=== PATIENT | female | born 1960 | race Caucasian/White ===

== ENCOUNTER 2016-03-07 19:20 | Emergency (ER) | payer OTHER ==
[2016-03-07 19:26] VITALS: BP 120/65; PULSE 74; TEMP 97.8; BMI 23.6
[2016-03-07] MEDS ORDERED: OXYCODONE/APAP 5/325MG COMBO TABLET PO ONE (20:29)
[2016-03-07] MEDS ORDERED: LIDOCAINE HCL 1%, 10 MG/ML (50 mL VIAL) INF ONE (20:31)
[2016-03-07] MEDS ORDERED: OXYCODONE/APAP 5/325MG COMBO TABLET ONE (20:39)
[2016-03-07] MEDS ORDERED: LIDOCAINE HCL 2% (20ML MULTI-DOSE VIAL) NR ONE (20:40)
[2016-03-07 20:54] LABS: MCH 28.6 pg (25.7-33.7); MCHC 33.3 g/dl (32.0-36.0); MEAN PLT VOLUME 7.8 fl (7.5-11.1); PLATELET COUNT 315 K/MM3 (134-434); WHITE BLOOD COUNT 8.4 K/mm3 (4.0-10.0)
[2016-03-07 21:17] LABS: ALBUMIN 3.5 g/dl (3.4-5.0); ANION GAP 9 (8-16); CALCIUM 8.7 mg/dL (8.5-10.1); CO2 27 mmol/L (21-32); CREATININE 0.5 mg/dL (0.55-1.02); GLUCOSE,RANDOM 103 mg/dL (74-106); SGOT/AST 23 U/L (15-37); SGPT/ALT 18 U/L (12-78)
[2016-03-07 21:22] LABS: ALK PHOS 92 U/L (45-117); BILIRUBIN,TOTAL 0.6 mg/dL (0.2-1.0); TROPONIN I < 0.02 ng/ml (0.00-0.05)
--- NOTE | 2016-03-07 21:51 | PDOC ---
History of Present Illness - General Chief Complaint: Injury Stated Complaint: FALL/HEAD INJURY Time Seen by Provider: 03/07/16 20:17 History Source: Patient, Family, Web Development Consultant Used Exam Limitations: Language Barrier - History of Present Illness Initial Comments: 03/07/16 21:46 55yo Female patient presents to ED c/o fall and head injury. Patient was walking her dog when she tripped over his leash, falling and hitting head on concrete. Patient denies LOC, or neck injury/pain. Patient with 2 cm laceration to right eye brow. Denies vision loss, headache, n/v/d, confusion, disorientation, neck pain, chest pain, back pain, abd pain, or any other complaints at this time. Associated bilateral knee pain and right wrist pain on examination. Denies anticoagulation use. Tetanus > 15yrs old. Occurred: reports: this evening Severity: reports: mild Pain Location: reports: head (head injury.), lower extremity (bilateral knees), upper extremity (right wrist) Method of Injury: Yes: fall Modifying Factors: improves with: rest Loss of Consciousness: no loss of consciousness Past History - Travel Traveled outside of the country in the last 30 days: No Close contact w/someone who was outside of country & ill: No - Past Medical History Allergies/Adverse Reactions: Allergies Allergy/AdvReac Type Severity Reaction Status Date / Time Penicillins Allergy Mild Itching Verified 03/07/16 19:26 Home Medications: Ambulatory Orders Cephalexin [Keflex] 500 mg PO BID #20 capsule 03/07/16 Levothyroxine [Synthroid -] 200 mcg PO DAILY 03/07/16 Losartan Potassium 25 mg PO DAILY 03/07/16 Metformin HCl [Glucophage] 1,000 mg PO BID 03/07/16 Tramadol HCl 50 mg PO Q6H PRN #12 tablet MDD 4 tabs 03/07/16 Cancer: Yes (Stomach 2008) Diabetes: Yes HTN: Yes Hypercholesterolemia: Yes Suicide Attempt (Hx): No Thyroid Disease: Yes - Surgical History Abdominal Surgery: Yes (HERNIA REPAIR) Cholecystectomy: Yes Orthopedic Surgery: Yes (RT KNEE REPLACEMENT) - Immunization History Immunization Up to Date: No - Psycho/Social/Smoking Cessation Hx Anxiety: No Suicidal Ideation: No Smoking Status: Yes Smoking History: Current every day smoker Have you smoked in the past 12 months: Yes Number of Cigarettes Smoked Daily: 7 Information on smoking cessation initiated: No 'Breaking Loose' booklet given: 05/04/15 Hx Alcohol Use: No Drug/Substance Use Hx: No Substance Use Type: None Hx Substance Use Treatment: No Trauma Specific PMHX - Complaint Specific PMHX Arthritis: No Back Injury: No Neck Injury: No Hx Sacro Iliac Joint Dysfunction: No Review of Systems - Review of Systems Able to Perform ROS?: Yes Is the patient limited Ukrainian proficient: No Constitutional: No: Chills, Fever, Weakness HEENTM: No: Eye Pain, Blurred Vision, Double Vision, Ear Pain, Nose Pain, Nose Congestion, Nose Bleeding, Throat Pain, Difficulty Swallowing Respiratory: No: Shortness of Breath, Stridor, Wheezing, Hemoptysis Cardiac (ROS): No: Chest Pain, Edema, Lightheadedness, Palpitations, Chest Tightness ABD/GI: No: Abdominal Distended, Blood Streaked Bowels, Diarrhea, Difficulty Swallowing, Nausea, Rectal Bleeding, Vomiting : No: Dysuria, Discharge, Frequency, Flank Pain, Hematuria, Incontinence, Pain , Urgency Musculoskeletal: Yes: Other (Head injury). No: Back Pain, Neck Pain Integumentary: No: Erythema, Rash Neurological: No: Headache, Numbness, Paresthesia, Seizure, Tingling, Tremors, Weakness, Unsteady Gait, Ataxia, Dizziness All Other Systems: Reviewed and Negative *Physical Exam - Vital Signs Last Vital Signs Temp Pulse Resp BP Pulse Ox 97.8 F 74 18 120/65 99 03/07/16 19:21 03/07/16 19:21 03/07/16 19:21 03/07/16 19:21 03/07/16 19:21 - Physical Exam General Appearance: Yes: Nourished, Appropriately Dressed, Mild Distress. No: Apparent Distress, Moderate Distress, Severe Distress HEENT: positive: EOMI, ABBY, Normal ENT Inspection, Normal Voice, Symmetrical, TMs Normal, Pharynx Normal. negative: Nasal Congestion, Rhinorrhea, TM Bulging , TM Dull, TM Erythema Neck: positive: Trachea midline, Normal Thyroid, Supple. negative: Tender, Rigid, Decreased range of motion, Stridor, Lymphadenopathy (R), Lymphadenopathy (L), Tender lateral, Tender midline Respiratory/Chest: positive: Lungs Clear, Normal Breath Sounds. negative: Respiratory Distress, Accessory Muscle Use, Labored Respiration, Rapid RR, Rhonchi, Stridor, Wheezing Cardiovascular: positive: Regular Rhythm, Regular Rate. negative: Edema, JVD, Murmur Gastrointestinal/Abdominal: positive: Normal Bowel Sounds, Soft. negative: Distended, Guarding, Rebound, Tenderness Musculoskeletal: positive: Normal Inspection. negative: CVA Tenderness Extremity: positive: Normal Capillary Refill, Normal Inspection, Normal Range of Motion, Pelvis Stable, Other (Bilateral knee tenderness on examination with mild erythema. 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 Bacitracin ointment applied topically after procedure. ED Treatment Course - LABORATORY CBC & Chemistry Diagram: 03/07/16 20:42 03/07/16 20:42 - ADDITIONAL ORDERS Additional order review: Laboratory Results 03/07/16 20:42 Sodium 143 Potassium 4.1 Chloride 107 Carbon Dioxide 27 Anion Gap 9 BUN 13 D Creatinine 0.5 L D Creat Clearance w eGFR > 60 Random Glucose 103 Calcium 8.7 Total Bilirubin 0.6 AST 23 D ALT 18 D Alkaline Phosphatase 92 D Creatine Kinase 84 Troponin I < 0.02 Total Protein 7.0 Albumin 3.5 03/07/16 20:42 RBC 4.53 MCV 86.0 MCHC 33.3 RDW 14.0 D MPV 7.8 - RADIOLOGY Radiology Studies Ordered: Category Date Time Status CERVICAL SPINE CT W/O CONTR [CT] Stat CT Scan 03/07/16 20:[address] WITHOUT CONTRAST [CT] Stat CT Scan 03/07/16 20:26 Taken KNEE 2 POS-LEFT [RAD] Stat Radiology 03/07/16 20:26 Taken KNEE 2 POS-RIGHT [RAD] Stat Radiology 03/07/16 20:26 Taken WRIST W/HAND-RIGHT* [RAD] Stat Radiology 03/07/16 20:26 Taken - Medications Given in the ED: ED Medications Discontinued Medications Generic Name Dose Route Start Last Admin Trade Name Freq PRN Reason Stop Dose Admin Lidocaine HCl 10 ml 03/07/16 20:31 03/07/16 20:53 Xylocaine 1% INF 03/07/16 20:32 10 ml ONCE ONE Administration Oxycodone/Acetaminophen 1 combo 03/07/16 20:29 03/07/16 20:41 Percocet 5/325 - PO 03/07/16 20:30 1 combo ONCE ONE Administration *DC/Admit/Observation/Transfer Diagnosis at time of Disposition: Laceration Head injury Qualifiers: Encounter type: initial encounter Qualified Code(s): S09.90XA - Unspecified injury of head, initial encounter Fall Qualifiers: Encounter type: initial encounter Qualified Code(s): W19.XXXA - Unspecified fall, initial encounter - Discharge Dispostion Disposition: HOME Condition at time of disposition: Stable Admit: No - Prescriptions Prescriptions: Cephalexin [Keflex] 500 mg PO BID #20 capsule Tramadol HCl 50 mg PO Q6H PRN #12 tablet MDD 4 tabs PRN Reason: severe pain - Patient Instructions Printed Discharge Instructions: DI for Suture Removal, DI for Closed Head Injury Additional Instructions: FOLLOW UP WITH YOUR PRIMARY CARE PROVIDER OR RETURN TO THIS EMERGENCY DEPARTMENT IN 5 DAYS FOR SUTURE REMOVAL. DO NOT WET OR SCRUB AREA FOR 24 HOURS. MAY WASH WITH SOAP AND WATER AFTER, DRY THOROUGHLY THEN APPLY BACITRACIN OINTMENT NEEDED. YOU SHOULD ALSO HOLD COLD COMPRESS TO AFFECTED AREA EVERY 4 HOURS FOR 10-15 MINS ON AND OFF TWICE A DAY. TRAMADOL FOR PAIN NOT RELIEVED BY MOTRIN OR TYLENOL. KEFLEX TO PREVENT INFECTION. RETURN IF ANY CONCERNS FOR FURTHER EVALUATION. Print Language: INDONESIAN
[2016-03-07] MEDS ORDERED: traMADol HCL 50 MG TABLET PO ONE (22:48)
[2016-03-07] MEDS ORDERED: CEPHALEXIN MONOHYDRATE 500 MG CAPSULE (UD) PO ONE (22:48)
[2016-03-07] MEDS ORDERED: TETANUS AND DIPHTHERIA TOXOID 0.5 ML DISP.SYRIN IM ONE (22:48)
[2016-03-07] MEDS ORDERED: traMADol HCL 50 MG TABLET ONE (22:55)
[2016-03-07] MEDS ORDERED: CEPHALEXIN MONOHYDRATE 250 MG CAPSULE (FP) ONE (22:56)
--- NOTE | 2016-03-08 09:32 | EKG ---
Test Reason : Blood Pressure : / mmHG Vent. Rate : 060 BPM Atrial Rate : 060 BPM P-R Int : 150 ms QRS Dur : 090 ms QT Int : 418 ms P-R-T Axes : 055 052 059 degrees QTc Int : 418 ms NORMAL SINUS RHYTHM Confirmed by ISAIAS SOSA MD ([id number]) on 03/08/2016 9:32:08 AM Referred By: Confirmed By:ISAIAS SOSA MD
== END 2016-03-07 23:19 | disposition home or self-care (01) ==
LOC: JERFT 19:20 → JER 19:20
PROC: 0HQ1XZZ Repair Face Skin, External Approach (ICD-10-PCS; principal; 2016-03-07)
PROC: 3E0234Z Introduction of Serum, Toxoid and Vaccine into Muscle, Percutaneous Approach (ICD-10-PCS; 2016-03-07)
DX: S01.81XA Laceration without foreign body of other part of head, initial encounter (principal); W01.0XXA Fall on same level from slipping, tripping and stumbling without subsequent striking against object, initial encounter; Y93.K1 Activity, walking an animal; Y92.488 Other paved roadways as the place of occurrence of the external cause; I10 Essential (primary) hypertension; E11.9 Type 2 diabetes mellitus without complications; Z79.84 Long term (current) use of oral hypoglycemic drugs; E78.00 Pure hypercholesterolemia, unspecified; E03.9 Hypothyroidism, unspecified; Z85.028 Personal history of other malignant neoplasm of stomach
CPT/HCPCS: 12011-25; 36415; 70450-TC; 72125-TC; 73110-TC-RT; 73130-TC-RT; 73560-TC-LT; 73560-TC-RT; 80053; 82550; 84484; 85027; 90471; 90715; 93005; 93010; 99283-25

== ENCOUNTER 2016-05-30 11:03 | Emergency (ER) | payer OTHER ==
[2016-05-30 11:09] VITALS: BP 119/77; PULSE 97; TEMP 98.3; BMI 22.3
[2016-05-30] MEDS ORDERED: traMADol HCL 50 MG TABLET PO ONE (11:24)
[2016-05-30] MEDS ORDERED: traMADol HCL 50 MG TABLET ONE (11:33)
--- NOTE | 2016-05-30 11:53 | PDOC ---
History of Present Illness - General Chief Complaint: Injury Stated Complaint: FALL/ NOSE, HEADACHE Time Seen by Provider: 05/30/16 11:18 History Source: Patient Exam Limitations: No Limitations - History of Present Illness Initial Comments: 05/30/16 11:48 55-year-old female presents to the ED with complaints of status post mechanical fall. Patient states was walking when she had tripped on her shoelaces causing her to fall forward landing on her left knee, bilateral hands, and then face. Patient denies LOC and denies any headache visual changes neck pain or dizziness presently. Patient states on no anticoagulation therapy and has history of diabetes. Patient states is concerned secondary to nasal swelling, for had tenderness, and swelling to upper lip. Occurred: reports: this morning Severity: reports: mild Pain Location: reports: face, lower extremity (left knee) Method of Injury: Yes: fall Modifying Factors: improves with: None Loss of Consciousness: no loss of consciousness Associated Symptoms (Fall): denies symptoms Past History - Past Medical History Allergies/Adverse Reactions: Allergies Allergy/AdvReac Type Severity Reaction Status Date / Time Penicillins Allergy Mild Itching Verified 05/30/16 11:09 Home Medications: Ambulatory Orders Cephalexin [Keflex] 500 mg PO BID #20 capsule 03/07/16 Levothyroxine [Synthroid -] 200 mcg PO DAILY 03/07/16 Losartan Potassium 25 mg PO DAILY 03/07/16 Metformin HCl [Glucophage] 1,000 mg PO BID 03/07/16 Tramadol HCl 50 mg PO Q6H PRN #12 tablet MDD 4 tabs 03/07/16 Cancer: Yes (Stomach 2008) Diabetes: Yes HTN: Yes Hypercholesterolemia: Yes Suicide Attempt (Hx): No Thyroid Disease: Yes - Surgical History Abdominal Surgery: Yes (HERNIA REPAIR) Cholecystectomy: Yes Orthopedic Surgery: Yes (RT KNEE REPLACEMENT) - Immunization History Immunization Up to Date: No - Psycho/Social/Smoking Cessation Hx Anxiety: No Suicidal Ideation: No Smoking Status: Yes Smoking History: Current every day smoker Have you smoked in the past 12 months: Yes Number of Cigarettes Smoked Daily: 4 Information on smoking cessation initiated: Yes 'Breaking Loose' booklet given: 05/30/16 Hx Alcohol Use: No Drug/Substance Use Hx: No Substance Use Type: None Hx Substance Use Treatment: No Patient Lives Alone: No Lives with/in: spouse/SO Trauma Specific PMHX - Complaint Specific PMHX Arthritis: No Back Injury: No Neck Injury: No Hx Sacro Iliac Joint Dysfunction: No Review of Systems - Review of Systems Able to Perform ROS?: Yes Constitutional: No: Symptoms Reported HEENTM: No: Symptoms Reported Respiratory: No: Symptoms reported Cardiac (ROS): No: Symptoms Reported ABD/GI: No: Symptoms Reported Musculoskeletal: No: Joint Pain Integumentary: Yes: Erythema, Other (swelling to nasal bridge and upper lip) Neurological: No: Symptoms reported *Physical Exam - Vital Signs Last Vital Signs Temp Pulse Resp BP Pulse Ox 98.3 F 97 H 18 119/77 97 05/30/16 11:08 05/30/16 11:08 05/30/16 11:08 05/30/16 11:08 05/30/16 11:08 - Physical Exam General Appearance: Yes: Nourished, Appropriately Dressed. No: Apparent Distress HEENT: positive: EOMI, ABBY (reactive bilateral), TMs Normal, Pharynx Normal (1 cm linear superficial to the inner aspect of upper lip. #8 and 9 teeth are intact. buccal mucosa intact /gingiva intact) Neck: positive: Supple. negative: Tender, Decreased range of motion Respiratory/Chest: positive: Lungs Clear, Normal Breath Sounds. negative: Respiratory Distress, Accessory Muscle Use Cardiovascular: positive: Regular Rhythm, Regular Rate. negative: Murmur Integumentary: positive: Other (Noted mild edema to the nasal bridge, lower mid forehead, and upper lip. Noted dry blood in bilateral nares. No crepitus no deformity no orbital tenderness. Full range of motion of mandible. ) Neurologic: positive: Motor Strength 5/5 (ambulatory. gait steady.) ED Treatment Course - RADIOLOGY Radiology Studies Ordered: Category Date Time Status FACIAL BONES CT W/O CONTRAST [CT] Stat CT Scan 05/30/16 11:24 Ordered - Medications Given in the ED: ED Medications Discontinued Medications Generic Name Dose Route Start Last Admin Trade Name Freq PRN Reason Stop Dose Admin Tramadol HCl 50 mg 05/30/16 11:24 05/30/16 11:41 Ultram - PO 05/30/16 11:25 50 mg ONCE ONE Administration Medical Decision Making - Medical Decision Making 05/30/16 11:54 Patient status post mechanical fall with tenderness to the nasal bridge lower mid forehead and upper lip. Patient ordered for facial CT to rule out fractures. Patient requesting tramadol since she states only takes that when needed for pain since having her knee surgery 2 months ago. 05/30/16 13:28 Patient with no acute fracture seen chronic bilateral nasal fractures again seen when compared to CT from 03/07/2016. Patient be discharged home with supportive care. patient states feeling better. *DC/Admit/Observation/Transfer Diagnosis at time of Disposition: Contusion of face Qualifiers: Encounter type: initial encounter Qualified Code(s): S00.83XA - Contusion of other part of head, initial encounter - Discharge Dispostion Disposition: HOME Condition at time of disposition: Good - Referrals Referrals: Claudio Luis MD [Primary Care Provider] - - Patient Instructions Printed Discharge Instructions: DI for Contusion Additional Instructions: Apply ice to the affected area for the next 3 days as much as you can tolerate and may take Motrin or Tylenol for discomfort.
== END 2016-05-30 13:32 | disposition home or self-care (01) ==
LOC: JERFT 11:03
DX: S00.83XA Contusion of other part of head, initial encounter (principal); S01.511A Laceration without foreign body of lip, initial encounter; W01.0XXA Fall on same level from slipping, tripping and stumbling without subsequent striking against object, initial encounter; Y93.01 Activity, walking, marching and hiking; Y92.480 Sidewalk as the place of occurrence of the external cause; I10 Essential (primary) hypertension; E11.9 Type 2 diabetes mellitus without complications; Z79.84 Long term (current) use of oral hypoglycemic drugs; E78.00 Pure hypercholesterolemia, unspecified; E03.9 Hypothyroidism, unspecified; Z85.028 Personal history of other malignant neoplasm of stomach
CPT/HCPCS: 70486-TC; 99281-25

== ENCOUNTER 2020-07-09 20:09 | Inpatient (IN) | payer OTHER ==
[2020-07-09] MEDS ORDERED: ACETAMINOPHEN 500 MG TABLET (FP) PO ONE (21:06)
[2020-07-09] MEDS ORDERED: ACETAMINOPHEN 325 MG TABLET (FP) ONE (21:43)
[2020-07-09 22:18] LABS: BASO % 0.4 % (0-2.0); HEMATOCRIT 39.8 % (32.4-45.2); HEMOGLOBIN 13.2 GM/dL (10.7-15.3); LYMPH % 3.4 % (8-40); MCH 29.1 pg (25.7-33.7); MCHC 33.1 g/dl (32.0-36.0); MEAN CELL VOLUME 87.8 fl (80-96); MEAN PLT VOLUME 8.9 fl (7.5-11.1); MONO % 3.6 % (3.8-10.2); NEUT % 92.6 % (42.8-82.8); PLATELET COUNT 273 K/MM3 (134-434); RBC 4.54 M/mm3 (3.60-5.2); RDW 15.1 % (11.6-15.6); WHITE BLOOD COUNT 28.3 K/mm3 (4.0-10.0)
[2020-07-09 22:21] LABS: ALBUMIN 3.6 g/dl (3.4-5.0); CALCIUM 9.1 mg/dL (8.5-10.1)
[2020-07-09 22:25] LABS: CREATININE 0.9 mg/dL (0.55-1.3)
[2020-07-09 22:26] LABS: BILIRUBIN,TOTAL 1.1 mg/dL (0.2-1); TOT PROT 7.9 g/dl (6.4-8.2)
[2020-07-09] MEDS ORDERED: SODIUM CHLORIDE 1,000 ML IV STA (22:27)
[2020-07-09] MEDS ORDERED: AZTREONAM 1 GM in DEXTROSE 5%-WATER - 50 ML IVPB ONE (22:29)
[2020-07-09] MEDS ORDERED: VANCOMYCIN 1 GM in D5W (PRE-DOCKED) 1,000 MG/250 ML IVPB ONE (22:29)
[2020-07-09] MEDS ORDERED: CEFEPIME HCL/D5W 2 GM/50 ML BAG IVPB ONE (22:41)
[2020-07-09 22:56] LABS: EPI CELLS 10 /uL (0-25.1); HYALINE CASTS 4 /uL (0-3.1); URINE APPEARANCE CLOUDY; URINE BACTERIA >9,000 /uL (0-1359); URINE BILIRUBIN NEGATIVE (NEGATIVE); URINE COLOR YELLOW; URINE GLUCOSE (UA) NEGATIVE (NEGATIVE); URINE KETONE NEGATIVE (NEGATIVE); URINE LEUK ESTERASE 3+ (NEGATIVE); URINE NITRITE POSITIVE (NEGATIVE); URINE PROTEIN 1+ (NEGATIVE); URINE RBC 88 /uL (0-23.9); URINE UROBILINOGEN 0.2 mg/dL (0.2-1.0); URINE WBC 1109 /uL (0-25.8)
[2020-07-09] MEDS ORDERED: CEFEPIME 2 GM/100 ML BAG IVPB ONE (23:42)
[2020-07-09] MEDS ORDERED: VANCOMYCIN 1 GRAM (PRE-DOCKED) 1,000 MG/250 ML BAG IVPB ONE (23:42)
[2020-07-09 23:49] LABS: PLATELET ESTIMATE NORMAL
[2020-07-10] MEDS ORDERED: DEXTROSE 5%-0.45% SALINE 1,000 ML IV SCH (00:15)
[2020-07-10 03:21] VITALS: BMI 27.8
[2020-07-10] MEDS: INSULIN SLIDING SCALE (NOVOLOG) 1 VIAL SQ SCH ×4 (06:18→21:35)
[2020-07-10] MEDS: metFORMIN HCL 500 MG TABLET (FP) PO SCH ×2 (06:19→17:11)
[2020-07-10] MEDS: LEVOTHYROXINE NA 200 MCG TABLET PO SCH (06:19)
[2020-07-10 08:59] LABS: BLOOD UREA NITROGEN 12.4 mg/dL (7-18)
[2020-07-10 09:01] LABS: BASO % 0.4 % (0-2.0); HEMATOCRIT 35.1 % (32.4-45.2); HEMOGLOBIN 11.8 GM/dL (10.7-15.3); LYMPH % 4.9 % (8-40); MCH 29.3 pg (25.7-33.7); MCHC 33.5 g/dl (32.0-36.0); MEAN CELL VOLUME 87.4 fl (80-96); MONO % 4.7 % (3.8-10.2); PLATELET COUNT 218 K/MM3 (134-434); RBC 4.01 M/mm3 (3.60-5.2); RDW 14.7 % (11.6-15.6); WHITE BLOOD COUNT 25.9 K/mm3 (4.0-10.0)
[2020-07-10 09:02] LABS: CREATININE 0.7 mg/dL (0.55-1.3)
[2020-07-10 09:03] LABS: TOT PROT 6.3 g/dl (6.4-8.2)
[2020-07-10 09:16] LABS: ALBUMIN 2.8 g/dl (3.4-5.0)
[2020-07-10] MEDS ORDERED: CEFEPIME HCL 1 GM VIAL (RESTRICTED TO ID) ONE (09:54)
[2020-07-10] MEDS ORDERED: DEXTROSE 5%-WATER 100 ML IVPB ONE (09:54)
[2020-07-10] MEDS ORDERED: PATIENT'S OWN MEDICATION (NON-FORMULARY) (Metformin Hcl [Glucophage] 1,000 MG Tablet) PO SCH (10:00)
[2020-07-10] MEDS ORDERED: LOSARTAN POTASSIUM 25 MG TABLET PO SCH (10:00)
[2020-07-10] MEDS ORDERED: CEFEPIME 1 GM in DEXTROSE 5%-WATER 1 GM/100 ML BAG IVPB SCH (10:00)
[2020-07-10] MEDS ORDERED: CEFEPIME HCL/D5W 1 GM/50 ML BAG IVPB SCH (10:00)
[2020-07-10] MEDS: ENOXAPARIN NA (PORCINE) 40 MG/0.4 ML DISP.SYRIN SQ SCH (10:26)
[2020-07-10 11:20] LABS: ANISOCYTOSIS 0; MACROCYTOSIS 0; PLATELET ESTIMATE NORMAL
[2020-07-10] MEDS: ACETAMINOPHEN 325 MG TABLET (FP) PO PRN (14:17)
[2020-07-10] MEDS ORDERED: POTASSIUM CHLORIDE TABS 20 MEQ TABLET.ER (FP) PO ONE (16:51)
[2020-07-10] MEDS: CEFEPIME 1 GM in DEXTROSE 5%-WATER 1 GM/100 ML BAG IVPB SCH (18:01)
[2020-07-10] MEDS ORDERED: ACETAMINOPHEN 1000 MG/100 ML VIAL (NON FORMULARY) IVPB ONE (21:40)
[2020-07-10] MEDS: DEXTROSE 5%-0.45% SALINE 1,000 ML IV SCH (23:11)
[2020-07-11] MEDS ORDERED: CEFEPIME HCL 1 GM VIAL (RESTRICTED TO ID) ONE ×3 (01:34→17:07)
[2020-07-11] MEDS ORDERED: DEXTROSE 5%-WATER 100 ML IVPB ONE ×3 (01:34→17:07)
[2020-07-11] MEDS: CEFEPIME 1 GM in DEXTROSE 5%-WATER 1 GM/100 ML BAG IVPB SCH ×3 (02:07→18:11)
[2020-07-11] MEDS: ACETAMINOPHEN 325 MG TABLET (FP) PO PRN ×3 (05:27→20:08)
[2020-07-11] MEDS: INSULIN SLIDING SCALE (NOVOLOG) 1 VIAL SQ SCH ×4 (06:03→21:34)
[2020-07-11] MEDS: LEVOTHYROXINE NA 200 MCG TABLET PO SCH (06:03)
[2020-07-11] MEDS: metFORMIN HCL 500 MG TABLET (FP) PO SCH ×2 (06:03→18:10)
[2020-07-11 08:53] LABS: BASO % 0.2 % (0-2.0); HEMOGLOBIN 11.6 GM/dL (10.7-15.3); LYMPH % 8.5 % (8-40); MCH 29.9 pg (25.7-33.7); MCHC 34.1 g/dl (32.0-36.0); MEAN CELL VOLUME 87.8 fl (80-96); MEAN PLT VOLUME 8.4 fl (7.5-11.1); MONO % 5.3 % (3.8-10.2); PLATELET COUNT 180 K/MM3 (134-434); RBC 3.87 M/mm3 (3.60-5.2); RDW 14.9 % (11.6-15.6); WHITE BLOOD COUNT 10.3 K/mm3 (4.0-10.0)
[2020-07-11 09:14] LABS: CALCIUM 8.3 mg/dL (8.5-10.1)
[2020-07-11] MEDS: DEXTROSE 5%-0.45% SALINE 1,000 ML IV SCH ×3 (09:15→23:00)
[2020-07-11 09:16] LABS: ALBUMIN 2.5 g/dl (3.4-5.0)
[2020-07-11] MEDS: ENOXAPARIN NA (PORCINE) 40 MG/0.4 ML DISP.SYRIN SQ SCH (09:16)
[2020-07-11 09:19] LABS: CREATININE 0.8 mg/dL (0.55-1.3)
[2020-07-12] MEDS ORDERED: CEFEPIME HCL 1 GM VIAL (RESTRICTED TO ID) ONE (02:32)
[2020-07-12] MEDS ORDERED: DEXTROSE 5%-WATER 100 ML IVPB ONE ×3 (02:33→16:57)
[2020-07-12] MEDS: CEFEPIME 1 GM in DEXTROSE 5%-WATER 1 GM/100 ML BAG IVPB SCH (02:51)
[2020-07-12] MEDS: DEXTROSE 5%-0.45% SALINE 1,000 ML IV SCH ×3 (03:00→17:18)
[2020-07-12] MEDS: ACETAMINOPHEN 325 MG TABLET (FP) PO PRN ×2 (04:08→15:20)
[2020-07-12] MEDS ORDERED: LEVOTHYROXINE NA 150 MCG TABLET ONE (05:55)
[2020-07-12] MEDS ORDERED: LEVOTHYROXINE NA 25 MCG TABLET (FP) ONE (05:55)
[2020-07-12] MEDS: metFORMIN HCL 500 MG TABLET (FP) PO SCH ×2 (06:15→17:07)
[2020-07-12] MEDS: LEVOTHYROXINE 150 MCG, LEVOTHYROXINE 25 MCG PO SCH (06:15)
[2020-07-12] MEDS: INSULIN SLIDING SCALE (NOVOLOG) 1 VIAL SQ SCH ×4 (06:17→21:47)
[2020-07-12] MEDS ORDERED: LEVOTHYROXINE NA 150 MCG TABLET PO SCH (07:00)
[2020-07-12] MEDS ORDERED: PT OWN MED DRAWER 7, Y5N ONE (09:49)
[2020-07-12] MEDS ORDERED: MEROPENEM 1 GM VIAL (RESTRICTED TO ID) IVPB ONE ×2 (09:49→16:56)
[2020-07-12] MEDS: MEROPENEM 1 GM in DEXTROSE 5%-WATER 100 ML IVPB SCH ×2 (09:52→17:15)
[2020-07-12] MEDS: ENOXAPARIN NA (PORCINE) 40 MG/0.4 ML DISP.SYRIN SQ SCH (09:56)
[2020-07-12] MEDS ORDERED: DEXTROSE 5% IVPB SCH (10:00)
[2020-07-12] MEDS ORDERED: WATER IVPB SCH (10:00)
[2020-07-12] MEDS ORDERED: MEROPENEM IVPB SCH (10:00)
[2020-07-13] MEDS ORDERED: MEROPENEM 1 GM VIAL (RESTRICTED TO ID) IVPB ONE ×3 (01:26→16:48)
[2020-07-13] MEDS ORDERED: DEXTROSE 5%-WATER 100 ML IVPB ONE ×3 (01:26→16:48)
[2020-07-13] MEDS: MEROPENEM 1 GM in DEXTROSE 5%-WATER 100 ML IVPB SCH ×3 (01:45→17:14)
[2020-07-13] MEDS ORDERED: LEVOTHYROXINE NA 150 MCG TABLET ONE (05:17)
[2020-07-13] MEDS ORDERED: LEVOTHYROXINE NA 25 MCG TABLET (FP) ONE (05:17)
[2020-07-13] MEDS: metFORMIN HCL 500 MG TABLET (FP) PO SCH ×2 (06:00→17:14)
[2020-07-13] MEDS: INSULIN SLIDING SCALE (NOVOLOG) 1 VIAL SQ SCH ×4 (06:01→21:08)
[2020-07-13] MEDS: LEVOTHYROXINE 150 MCG, LEVOTHYROXINE 25 MCG PO SCH (06:01)
[2020-07-13] MEDS ORDERED: INSULIN (NOVOLOG) ASPART 100 UNITS/ML 10ML VIAL ONE (10:15)
[2020-07-13] MEDS: DEXTROSE 5%-0.45% SALINE 1,000 ML IV SCH ×2 (10:22→16:45)
[2020-07-13] MEDS: ENOXAPARIN NA (PORCINE) 40 MG/0.4 ML DISP.SYRIN SQ SCH (10:23)
[2020-07-14] MEDS ORDERED: MEROPENEM 1 GM VIAL (RESTRICTED TO ID) IVPB ONE ×3 (00:48→16:27)
[2020-07-14] MEDS ORDERED: DEXTROSE 5%-WATER 100 ML IVPB ONE ×3 (00:48→16:28)
[2020-07-14] MEDS: MEROPENEM 1 GM in DEXTROSE 5%-WATER 100 ML IVPB SCH ×3 (01:08→17:37)
[2020-07-14] MEDS: DEXTROSE 5%-0.45% SALINE 1,000 ML IV SCH ×2 (01:30→16:31)
[2020-07-14] MEDS ORDERED: LEVOTHYROXINE NA 25 MCG TABLET (FP) ONE (06:11)
[2020-07-14] MEDS ORDERED: LEVOTHYROXINE NA 150 MCG TABLET ONE (06:11)
[2020-07-14] MEDS: LEVOTHYROXINE 150 MCG, LEVOTHYROXINE 25 MCG PO SCH (06:20)
[2020-07-14] MEDS: metFORMIN HCL 500 MG TABLET (FP) PO SCH ×2 (06:20→16:30)
[2020-07-14] MEDS: INSULIN SLIDING SCALE (NOVOLOG) 1 VIAL SQ SCH ×4 (06:21→22:27)
[2020-07-14 08:23] LABS: BASO % 0.8 % (0-2.0); EOS % 2.7 % (0-4.5); HEMATOCRIT 33.4 % (32.4-45.2); HEMOGLOBIN 11.3 GM/dL (10.7-15.3); MCH 29.3 pg (25.7-33.7); MCHC 33.7 g/dl (32.0-36.0); MEAN CELL VOLUME 86.9 fl (80-96); MONO % 15.5 % (3.8-10.2); PLATELET COUNT 237 K/MM3 (134-434); RBC 3.84 M/mm3 (3.60-5.2); RDW 15.1 % (11.6-15.6); WHITE BLOOD COUNT 4.9 K/mm3 (4.0-10.0)
[2020-07-14 09:06] LABS: CALCIUM 8.1 mg/dL (8.5-10.1)
[2020-07-14 09:07] LABS: ALBUMIN 2.4 g/dl (3.4-5.0); BLOOD UREA NITROGEN 8.7 mg/dL (7-18)
[2020-07-14 09:10] LABS: CREATININE 0.4 mg/dL (0.55-1.3)
[2020-07-14 09:12] LABS: BILIRUBIN,TOTAL 0.4 mg/dL (0.2-1); TOT PROT 6.1 g/dl (6.4-8.2)
[2020-07-14] MEDS: ENOXAPARIN NA (PORCINE) 40 MG/0.4 ML DISP.SYRIN SQ SCH (10:21)
[2020-07-14 10:56] LABS: ANISOCYTOSIS 1+; MACROCYTOSIS 0; PLATELET ESTIMATE NORMAL
[2020-07-14] MEDS: HYDROCORTISONE 2.5% TOPICAL CREAM 30 GM TUBE TP SCH (22:28)
[2020-07-15] MEDS ORDERED: MEROPENEM 1 GM VIAL (RESTRICTED TO ID) IVPB ONE ×3 (01:12→17:03)
[2020-07-15] MEDS ORDERED: DEXTROSE 5%-WATER 100 ML IVPB ONE ×3 (01:13→17:03)
[2020-07-15] MEDS: MEROPENEM 1 GM in DEXTROSE 5%-WATER 100 ML IVPB SCH ×3 (01:51→17:25)
[2020-07-15] MEDS ORDERED: LEVOTHYROXINE NA 25 MCG TABLET (FP) ONE (05:30)
[2020-07-15] MEDS ORDERED: LEVOTHYROXINE NA 150 MCG TABLET ONE (05:30)
[2020-07-15] MEDS: INSULIN SLIDING SCALE (NOVOLOG) 1 VIAL SQ SCH ×4 (06:22→21:07)
[2020-07-15] MEDS: metFORMIN HCL 500 MG TABLET (FP) PO SCH ×2 (06:23→17:26)
[2020-07-15] MEDS: DEXTROSE 5%-0.45% SALINE 1,000 ML IV SCH ×2 (06:23→17:26)
[2020-07-15] MEDS: LEVOTHYROXINE 150 MCG, LEVOTHYROXINE 25 MCG PO SCH (06:23)
[2020-07-15] MEDS: ENOXAPARIN NA (PORCINE) 40 MG/0.4 ML DISP.SYRIN SQ SCH (13:31)
[2020-07-15] MEDS: HYDROCORTISONE 2.5% TOPICAL CREAM 30 GM TUBE TP SCH (17:26)
[2020-07-16] MEDS ORDERED: MEROPENEM 1 GM VIAL (RESTRICTED TO ID) IVPB ONE ×3 (00:46→17:36)
[2020-07-16] MEDS ORDERED: DEXTROSE 5%-WATER 100 ML IVPB ONE ×3 (00:47→17:36)
[2020-07-16] MEDS: MEROPENEM 1 GM in DEXTROSE 5%-WATER 100 ML IVPB SCH ×3 (01:25→17:38)
[2020-07-16] MEDS ORDERED: LEVOTHYROXINE NA 150 MCG TABLET ONE (05:33)
[2020-07-16] MEDS ORDERED: LEVOTHYROXINE NA 25 MCG TABLET (FP) ONE (05:33)
[2020-07-16] MEDS: LEVOTHYROXINE 150 MCG, LEVOTHYROXINE 25 MCG PO SCH (06:07)
[2020-07-16] MEDS: metFORMIN HCL 500 MG TABLET (FP) PO SCH ×2 (06:07→17:38)
[2020-07-16] MEDS: INSULIN SLIDING SCALE (NOVOLOG) 1 VIAL SQ SCH ×3 (06:08→17:19)
[2020-07-16 08:46] LABS: BASO % 0.9 % (0-2.0); EOS % 2.2 % (0-4.5); HEMATOCRIT 35.8 % (32.4-45.2); MCH 29.4 pg (25.7-33.7); MCHC 33.6 g/dl (32.0-36.0); MEAN CELL VOLUME 87.5 fl (80-96); MEAN PLT VOLUME 8.5 fl (7.5-11.1); MONO % 9.6 % (3.8-10.2); NEUT % 57.3 % (42.8-82.8); PLATELET COUNT 366 K/MM3 (134-434); RDW 15.1 % (11.6-15.6); WHITE BLOOD COUNT 7.1 K/mm3 (4.0-10.0)
[2020-07-16] MEDS: ENOXAPARIN NA (PORCINE) 40 MG/0.4 ML DISP.SYRIN SQ SCH (09:04)
[2020-07-16] MEDS: HYDROCORTISONE 2.5% TOPICAL CREAM 30 GM TUBE TP SCH (09:04)
[2020-07-16 09:12] LABS: ALBUMIN 2.7 g/dl (3.4-5.0); BLOOD UREA NITROGEN 8.3 mg/dL (7-18)
[2020-07-16 09:16] LABS: CREATININE 0.4 mg/dL (0.55-1.3)
[2020-07-16 09:17] LABS: BILIRUBIN,TOTAL 0.6 mg/dL (0.2-1); TOT PROT 6.9 g/dl (6.4-8.2)
[2020-07-16 18:26] VITALS: BP 140/69; PULSE 50; TEMP 97.6
== END 2020-07-16 18:44 | disposition home health service (06) | DRG 466 ==
LOC: JER 20:09 → JERBED 23:17 → J5S 07-10 02:29
PROVIDERS: ADMIT Internal Medicine; ATTEND Internal Medicine
PROC: 02HV33Z Insertion of Infusion Device into Superior Vena Cava, Percutaneous Approach (ICD-10-PCS; principal; 2020-07-16)
PROC: B548ZZA Ultrasonography of Superior Vena Cava, Guidance (ICD-10-PCS; 2020-07-16)
DX: T83.511A Infection and inflammatory reaction due to indwelling urethral catheter, initial encounter (principal); A41.50 Gram-negative sepsis, unspecified; N39.0 Urinary tract infection, site not specified; Y84.6 Urinary catheterization as the cause of abnormal reaction of the patient, or of later complication, without mention of misadventure at the time of the procedure; E03.9 Hypothyroidism, unspecified; I10 Essential (primary) hypertension; E11.9 Type 2 diabetes mellitus without complications; Z88.0 Allergy status to penicillin; Z79.84 Long term (current) use of oral hypoglycemic drugs; Z98.84 Bariatric surgery status; F32.9 Major depressive disorder, single episode, unspecified; F41.9 Anxiety disorder, unspecified
CPT/HCPCS: 36415; 36569; 71046-TC-FY; 74177-TC; 76775-TC; 76856-TC; 77001-TC-FY; 80053; 81003; 82962; 83605; 84443; 85025; 87040; 87086; 87186; 93005; 93010; 99285-25; C1751; C9803; J0131; U0003; U0005

== ENCOUNTER 2020-07-17 10:14 | Day surgery (SDC) | payer OTHER ==
[2020-07-17] MEDS ORDERED: ERTAPENEM SODIUM 1 GM in SODIUM CHLORIDE 50 ML IVPB ONE (10:45)
[2020-07-17] MEDS ORDERED: ERTAPENEM SODIUM 1 GM VIAL ONE (10:47)
[2020-07-17] MEDS ORDERED: SODIUM CHLORIDE 50 ML IVPB ONE (10:48)
[2020-07-17 11:30] VITALS: BP 125/69; PULSE 67; TEMP 98
== END 2020-07-17 14:00 | disposition home or self-care (01) ==
LOC: JINFUSION 10:14 → J7W 10:32 → JINFUSION 14:00
PROVIDERS: ATTEND Internal Medicine Infectious Disease
PROC: 3E033GC Introduction of Other Therapeutic Substance into Peripheral Vein, Percutaneous Approach (ICD-10-PCS; principal; 2020-07-17)
DX: N39.0 Urinary tract infection, site not specified (principal); A41.9 Sepsis, unspecified organism; E11.9 Type 2 diabetes mellitus without complications
CPT/HCPCS: 96365

== ENCOUNTER 2020-07-18 10:58 | Day surgery (SDC) | payer OTHER ==
[2020-07-18] MEDS ORDERED: ERTAPENEM SODIUM 1 GM in SODIUM CHLORIDE 50 ML IVPB SCH (11:30)
[2020-07-18] MEDS ORDERED: ERTAPENEM SODIUM 1 GM VIAL ONE (12:04)
[2020-07-18] MEDS ORDERED: SODIUM CHLORIDE 50 ML IVPB ONE (12:04)
[2020-07-18 12:10] VITALS: BP 119/67; PULSE 61; TEMP 99
== END 2020-07-18 12:45 | disposition home or self-care (01) ==
LOC: JINFUSION 10:58 → J7W 10:59 → JINFUSION 12:45
PROVIDERS: ATTEND Internal Medicine Infectious Disease
DX: N39.0 Urinary tract infection, site not specified (principal); A41.9 Sepsis, unspecified organism; E11.9 Type 2 diabetes mellitus without complications
CPT/HCPCS: 96365

== ENCOUNTER 2020-07-19 10:59 | Day surgery (SDC) | payer OTHER ==
[2020-07-19] MEDS ORDERED: ERTAPENEM SODIUM 1 GM VIAL ONE (11:09)
[2020-07-19] MEDS ORDERED: SODIUM CHLORIDE 50 ML IVPB ONE (11:09)
[2020-07-19] MEDS ORDERED: ERTAPENEM SODIUM 1 GM in SODIUM CHLORIDE 50 ML IVPB ONE (11:15)
[2020-07-19 12:22] VITALS: BP 121/71; PULSE 72; TEMP 98.2
== END 2020-07-19 13:45 | disposition home or self-care (01) ==
LOC: J7W 10:59 → JINFUSION 10:59
PROVIDERS: ATTEND Internal Medicine Infectious Disease
DX: N39.0 Urinary tract infection, site not specified (principal); A41.9 Sepsis, unspecified organism; E11.9 Type 2 diabetes mellitus without complications
CPT/HCPCS: 96365

== ENCOUNTER 2020-07-20 11:07 | Day surgery (SDC) | payer OTHER ==
[2020-07-20] MEDS ORDERED: ERTAPENEM SODIUM 1 GM in SODIUM CHLORIDE 50 ML IVPB ONE (11:30)
[2020-07-20 12:26] VITALS: BP 125/68; PULSE 70; TEMP 98.3
== END 2020-07-20 12:26 | disposition home or self-care (01) ==
LOC: JINFUSION 11:07 → J7W 11:09 → JINFUSION 12:26
PROVIDERS: ATTEND Internal Medicine Infectious Disease
DX: N39.0 Urinary tract infection, site not specified (principal); A41.9 Sepsis, unspecified organism; E11.9 Type 2 diabetes mellitus without complications
CPT/HCPCS: 96365

== ENCOUNTER 2020-07-21 11:25 | Day surgery (SDC) | payer OTHER ==
[2020-07-21] MEDS ORDERED: ERTAPENEM SODIUM 1 GM in SODIUM CHLORIDE 50 ML IVPB ONE (11:45)
[2020-07-21 12:44] VITALS: BP 129/73; PULSE 77; TEMP 98.3
== END 2020-07-21 12:44 | disposition home or self-care (01) ==
LOC: JINFUSION 11:25 → J7W 11:25 → JINFUSION 12:44
PROVIDERS: ATTEND Internal Medicine Infectious Disease
DX: N39.0 Urinary tract infection, site not specified (principal); A41.9 Sepsis, unspecified organism; E11.9 Type 2 diabetes mellitus without complications
CPT/HCPCS: 96365

== ENCOUNTER 2020-07-22 11:37 | Day surgery (SDC) | payer OTHER ==
[~2020-07-22 11:37] MED LIST: ERTAPENEM SODIUM 1 GM in DEXTROSE 5%-WATER - 50 ML IVPB ONE; ERTAPENEM SODIUM 1 GM in SODIUM CHLORIDE 50 ML IVPB ONE
[2020-07-22] MEDS ORDERED: SODIUM CHLORIDE 50 ML IVPB ONE (12:06)
[2020-07-22] MEDS ORDERED: ERTAPENEM SODIUM 1 GM VIAL ONE (12:06)
[2020-07-22 14:17] VITALS: BP 105/62; PULSE 58; TEMP 98.9
== END 2020-07-22 14:33 | disposition home or self-care (01) ==
LOC: JINFUSION 11:37 → J7W 11:37 → JINFUSION 14:33
PROVIDERS: ATTEND Internal Medicine Infectious Disease
DX: N39.0 Urinary tract infection, site not specified (principal); A41.9 Sepsis, unspecified organism; E11.9 Type 2 diabetes mellitus without complications
CPT/HCPCS: 96365

== ENCOUNTER 2022-06-18 06:09 | Day surgery (SDC) | payer OTHER ==
[2022-06-12 10:47] VITALS: BMI 25.0
[2022-06-18] MEDS ORDERED: PROPOFOL 20 ML ONE ×3 (07:03→09:15)
[2022-06-18] MEDS ORDERED: MIDAZOLAM HCL 2 MG/2 ML SINGLE DOSE VIAL ONE (07:03)
[2022-06-18] MEDS ORDERED: BUPIVACAINE HCL/PF 0.5% (5 MG/ML) 30 ML VIAL IJ ONE (07:42)
[2022-06-18] MEDS ORDERED: DEXAMETHASONE SOD PHOSPHATE/PF 10 MG/ML SDV ONE (07:42)
[2022-06-18] MEDS ORDERED: DEXAMETHASONE SOD PHOSPHATE 4 MG/1 ML VIAL ONE (07:42)
[2022-06-18] MEDS ORDERED: ACETAMINOPHEN INJECTION 100 ML IVPB ONE (07:42)
[2022-06-18] MEDS ORDERED: KETAMINE HCL 200 MG/20 ML VIAL ONE (08:02)
[2022-06-18] MEDS ORDERED: TRANEXAMIC ACID 1000 MG/10 ML VIAL ONE (08:17)
[2022-06-18] MEDS ORDERED: ONDANSETRON 4 MG/2 ML VIAL ONE (08:21)
[2022-06-18] MEDS ORDERED: KETOROLAC TROMETHAMINE 30 MG/1 ML VIAL ONE (09:14)
[2022-06-18] MEDS ORDERED: oxyCODONE HCL 5 MG TABLET PO PRN ×2 (10:32)
[2022-06-18] MEDS ORDERED: ONDANSETRON 4 MG/2 ML VIAL IVPUSH PRN (10:32)
[2022-06-18] MEDS ORDERED: ACETAMINOPHEN 325 MG TABLET (FP) PO PRN (10:32)
[2022-06-18] MEDS ORDERED: LACTATED RINGERS SOLUTION 1,000 ML IV SCH (10:45)
[2022-06-18 11:35] VITALS: RESP 16; TEMP 97.8
[2022-06-18 11:51] VITALS: BP 146/81; PULSE 68
== END 2022-06-18 13:05 | disposition home or self-care (01) ==
LOC: FASU 06:09
PROVIDERS: ATTEND Orthopaedic Surgery Sports Medicine
PROC: 0RNK4ZZ Release Left Shoulder Joint, Percutaneous Endoscopic Approach (ICD-10-PCS; principal; 2022-06-18 08:29)
DX: M75.112 Incomplete rotator cuff tear or rupture of left shoulder, not specified as traumatic (principal); M75.42 Impingement syndrome of left shoulder
CPT/HCPCS: 82962; 94760; C1713

== ENCOUNTER 2023-01-11 20:35 | Emergency (ER) | payer OTHER ==
[2023-01-11 20:49] VITALS: BP 168/74; PULSE 62; RESP 18; TEMP 98.2; BMI 25.9
[2023-01-11] MEDS ORDERED: DIPHTH,PERTUSS(ACELL),TET 0.5 ML DISP.SYRIN IM ONE ×2 (21:21→21:33)
[2023-01-11] MEDS ORDERED: ACETAMINOPHEN 325 MG TABLET (FP) PO ONE (21:22)
[2023-01-11] MEDS ORDERED: ACETAMINOPHEN 325 MG TABLET (FP) ONE (21:32)
[2023-01-11] MEDS ORDERED: BACITRACIN ZINC 15 GM TUBE TOPICAL OINTMENT TP ONE (22:57)
[2023-01-11] MEDS ORDERED: BACITRACIN ZINC 15 GM TUBE TOPICAL OINTMENT ONE (22:58)
== END 2023-01-12 00:31 | disposition home or self-care (01) ==
LOC: JER 20:35
PROC: 3E0234Z Introduction of Serum, Toxoid and Vaccine into Muscle, Percutaneous Approach (ICD-10-PCS; principal; 2023-01-11)
DX: S00.83XA Contusion of other part of head, initial encounter (principal); S60.511A Abrasion of right hand, initial encounter; S80.01XA Contusion of right knee, initial encounter; M25.561 Pain in right knee; M25.562 Pain in left knee; M79.641 Pain in right hand; M54.2 Cervicalgia; W18.39XA Other fall on same level, initial encounter; Y93.01 Activity, walking, marching and hiking
CPT/HCPCS: 70450-TC; 70486-TC; 72125-TC; 73562-TC-LT-FY; 90471; 90715; 99284-25

== ENCOUNTER 2023-08-23 20:02 | Emergency (ER) | payer OTHER ==
[2023-08-23 20:09] VITALS: BP 160/78; PULSE 68; RESP 20; TEMP 97.9; BMI 24.2
[2023-08-23] MEDS ORDERED: ONDANSETRON 4 MG/2 ML VIAL ONE (21:48)
[2023-08-23] MEDS: ONDANSETRON 4 MG/2 ML VIAL IVPB ONE ×2 (21:55)
[2023-08-23] MEDS: SODIUM CHLORIDE 0.9% 500 ML INFUS.BAG IV ONE (21:55)
[2023-08-23 22:12] LABS: BASO % 0.6 % (0-2.0); EOS % 2.1 % (0-4.5); HEMATOCRIT 41.8 % (32.4-45.2); HEMOGLOBIN 13.9 GM/dL (10.7-15.3); LYMPH % 40.8 % (8-40); MCH 28.6 pg (25.7-33.7); MCHC 33.2 g/dl (32.0-36.0); MEAN PLT VOLUME 8.5 fl (7.5-11.1); MONO % 7.5 % (3.8-10.2); PLATELET COUNT 306 10^3/uL (134-434); RBC 4.87 M/mm3 (3.60-5.2); RDW 14.3 % (11.6-15.6); WHITE BLOOD COUNT 5.3 K/mm3 (4.0-10.0)
[2023-08-23 22:20] LABS: POTASSIUM 3.9 mmol/L (3.5-5.1)
[2023-08-23 22:22] LABS: CALCIUM 9.2 mg/dL (8.5-10.1)
[2023-08-23 22:23] LABS: BLOOD UREA NITROGEN 13.5 mg/dL (7-18)
[2023-08-23 22:26] LABS: CREATININE 0.7 mg/dL (0.55-1.3)
[2023-08-23 22:27] LABS: BILIRUBIN,TOTAL 1.1 mg/dL (0.2-1)
[2023-08-23 22:28] LABS: TOT PROT 8.5 g/dl (6.4-8.2)
[2023-08-23 23:16] LABS: MAGNESIUM 2.2 mg/dL (1.8-2.4)
[2023-08-23 23:19] LABS: PHOSPHOROUS 3.5 mg/dL (2.5-4.9)
== END 2023-08-24 00:21 | disposition home or self-care (01) ==
LOC: JER 20:02
PROC: 3E033GC Introduction of Other Therapeutic Substance into Peripheral Vein, Percutaneous Approach (ICD-10-PCS; principal; 2023-08-23)
DX: R11.2 Nausea with vomiting, unspecified (principal); R63.4 Abnormal weight loss; R10.13 Epigastric pain; Z20.822 Contact with and (suspected) exposure to COVID-19
CPT/HCPCS: 0241U-QW; 36415; 80053; 83690; 83735; 84100; 85025; 96374; 99284-25

== ENCOUNTER 2024-07-20 23:44 | Inpatient (IN) | payer OTHER ==
[2024-07-21] MEDS: morphine CARPU-JECT 2 MG/1 ML DISP.SYRIN IVPUSH ONE ×2 (01:15→02:07)
[2024-07-21] MEDS ORDERED: MORPHINE SULFATE 2 MG/ML SYRINGE ONE ×2 (01:35→02:04)
[2024-07-21 01:52] LABS: EPI CELLS 21 /uL (0-25.1); HYALINE CASTS 1 /uL (0-3.1); URINE APPEARANCE CLEAR; URINE BACTERIA 12 /uL (0-1359); URINE BILIRUBIN NEGATIVE (NEGATIVE); URINE COLOR DK YELLOW; URINE GLUCOSE (UA) NEGATIVE (NEGATIVE); URINE KETONE TRACE (NEGATIVE); URINE LEUK ESTERASE 1+ (NEGATIVE); URINE NITRITE NEGATIVE (NEGATIVE); URINE PROTEIN NEGATIVE (NEGATIVE); URINE RBC 25 /uL (0-23.9); URINE WBC 41 /uL (0-25.8)
[2024-07-21 02:06] LABS: ABSOLUTE IMMATURE GRANULOCYTES 0.01 x10^3/uL (0.0-0.031); BASOPHILS # 0.02 x10^3/uL (0.01-0.08); EOSINOPHIL % 0.1 % (0.7-5.8); EOSINOPHILS # 0.01 x10^3/uL (0.04-0.36); HEMATOCRIT 34.8 % (34.1-44.9); HEMOGLOBIN 11.4 g/dL (11.2-15.7); MCHC 32.8 g/dl (32.2-35.5); MEAN CELL VOLUME 92.3 fl (79.4-94.8); MEAN PLT VOLUME 9.5 fl (9.4-12.3); MONOCYTE # 0.35 x10^3/uL (0.24-0.86); MONOCYTE % 5.1 % (4.7-12.5); PLATELET COUNT 214 x10^3/uL (182-369); RDW 19.9 % (12.4-16.4)
[2024-07-21 02:26] LABS: INR 0.99 (0.83-1.09); PROTHROMBIN TIME (PATIENT) 10.8 SEC (9.7-13.0)
[2024-07-21 02:29] LABS: ACTIVATED PTT 49.4 SECONDS (25.2-36.5)
[2024-07-21 02:33] LABS: POTASSIUM 3.8 mmol/L (3.5-5.1)
[2024-07-21 02:35] LABS: CALCIUM 8.8 mg/dL (8.5-10.1)
[2024-07-21 02:37] LABS: ALBUMIN 2.7 g/dl (3.4-5.0); BLOOD UREA NITROGEN 61.5 mg/dL (7-18); MAGNESIUM 2.5 mg/dL (1.8-2.4)
[2024-07-21 02:39] LABS: CREATININE 2.8 mg/dL (0.55-1.3)
[2024-07-21 02:40] LABS: BILIRUBIN,TOTAL 1.8 mg/dL (0.2-1)
[2024-07-21 02:42] LABS: TOT PROT 6.1 g/dl (6.4-8.2)
[2024-07-21 02:44] LABS: N-TERMINAL BNP 278.6 pg/ml (5-125)
[2024-07-21] MEDS: morphine CARPU-JECT 4 MG/1 ML DISP.SYRIN IVPUSH ONE (03:54)
[2024-07-21] MEDS ORDERED: morphine SULFATE 4 MG/ML VIAL ONE (04:00)
[2024-07-21] MEDS ORDERED: CEFEPIME HCL/D5W 2 GM/50 ML BAG IVPB ONE (05:01)
[2024-07-21] MEDS ORDERED: MORPHINE SULFATE 2 MG/ML SYRINGE IVPUSH PRN (05:42)
[2024-07-21] MEDS ORDERED: DOCUSATE SODIUM 100 MG CAPSULE (FP) PO PRN (05:42)
[2024-07-21] MEDS: CEFEPIME HCL 2 GM VIAL (RESTRICTED TO ID) IVPB ONE (05:42)
[2024-07-21] MEDS ORDERED: VANCOMYCIN 1 GM PREMIX (F) 1 GM/200 ML BAG ONE (05:51)
[2024-07-21] MEDS: VANCOMYCIN 1,000 MG in DEXTROSE 5%-WATER - 250 ML IVPB ONE (06:18)
[2024-07-21] MEDS: INSULIN ASPART SLIDING SCALE (NOVOLOG) 1 VIAL SQ SCH (08:17)
[2024-07-21] MEDS ORDERED: FENTANYL PATCH WASTE TD PRN (09:24)
[2024-07-21] MEDS: fentaNYL 12mcg/hr PATCH.TD72 TD SCH (09:49)
[2024-07-21] MEDS ORDERED: ACETAMINOPHEN 325 MG TABLET (FP) PO PRN (10:12)
[2024-07-21] MEDS: LIDOCAINE 5% TOPICAL PATCH TP SCH (10:37)
[2024-07-21] MEDS: ONDANSETRON 4 MG/2 ML VIAL IVPUSH PRN (13:40)
[2024-07-21 14:58] LABS: BILIRUBIN,DIRECT 1.2 mg/dL (0.0-0.2)
[2024-07-21] MEDS: morphine SULFATE 4 MG/ML VIAL IVPUSH PRN (15:28)
[2024-07-21] MEDS: LIDOCAINE PATCH REMOVAL MC SCH (21:47)
[2024-07-22] MEDS ORDERED: CEFEPIME HCL 2 GM VIAL (RESTRICTED TO ID) IVPB SCH (05:00)
[2024-07-22] MEDS ORDERED: CEFEPIME HCL/D5W 2 GM/50 ML BAG IVPB ONE (06:00)
[2024-07-22] MEDS: VANCOMYCIN 1 GM PREMIX (F) 1 GM/200 ML BAG IVPB ONE (06:03)
[2024-07-22] MEDS: LEVOTHYROXINE NA 150 MCG TABLET PO SCH (06:06)
[2024-07-22] MEDS ORDERED: VANCOMYCIN 1,000 MG in DEXTROSE 5%-WATER - 250 ML IVPB SCH (06:30)
[2024-07-22 09:10] LABS: ABSOLUTE IMMATURE GRANULOCYTES 0.02 x10^3/uL (0.0-0.031); BASOPHILS # 0.03 x10^3/uL (0.01-0.08); EOSINOPHIL % 1.9 % (0.7-5.8); EOSINOPHILS # 0.08 x10^3/uL (0.04-0.36); HEMATOCRIT 35.2 % (34.1-44.9); HEMOGLOBIN 11.5 g/dL (11.2-15.7); MCHC 32.7 g/dl (32.2-35.5); MEAN CELL VOLUME 93.1 fl (79.4-94.8); MEAN PLT VOLUME 10.4 fl (9.4-12.3); MONOCYTE # 0.21 x10^3/uL (0.24-0.86); MONOCYTE % 4.9 % (4.7-12.5); PLATELET COUNT 164 x10^3/uL (182-369); RDW 20.2 % (12.4-16.4)
[2024-07-22 09:29] LABS: POTASSIUM 3.9 mmol/L (3.5-5.1)
[2024-07-22 09:34] LABS: ALBUMIN 2.4 g/dl (3.4-5.0); BLOOD UREA NITROGEN 61.7 mg/dL (7-18)
[2024-07-22 09:35] LABS: CALCIUM 8.8 mg/dL (8.5-10.1)
[2024-07-22 09:37] LABS: CREATININE 3.1 mg/dL (0.55-1.3)
[2024-07-22 09:38] LABS: BILIRUBIN,TOTAL 3.7 mg/dL (0.2-1); TOT PROT 5.8 g/dl (6.4-8.2)
[2024-07-22] MEDS: HEPARIN NA (PORCINE) 5,000 UNITS/ML 1ML VIAL SQ SCH (21:31)
[2024-07-23] MEDS: PORTA CATH FLUSH 10 ML IVPUSH PRN (03:00)
[2024-07-23 08:45] LABS: ABSOLUTE IMMATURE GRANULOCYTES 0.02 x10^3/uL (0.0-0.031); BASOPHILS # 0.03 x10^3/uL (0.01-0.08); EOSINOPHIL % 1.2 % (0.7-5.8); EOSINOPHILS # 0.05 x10^3/uL (0.04-0.36); HEMATOCRIT 37.1 % (34.1-44.9); HEMOGLOBIN 11.8 g/dL (11.2-15.7); MCHC 31.8 g/dl (32.2-35.5); MEAN CELL VOLUME 93.5 fl (79.4-94.8); MEAN PLT VOLUME 9.8 fl (9.4-12.3); MONOCYTE # 0.35 x10^3/uL (0.24-0.86); MONOCYTE % 8.4 % (4.7-12.5); PLATELET COUNT 150 x10^3/uL (182-369); RDW 20.1 % (12.4-16.4)
[2024-07-23 09:09] LABS: ALBUMIN 2.4 g/dl (3.4-5.0); BLOOD UREA NITROGEN 64.4 mg/dL (7-18); CALCIUM 8.8 mg/dL (8.5-10.1)
[2024-07-23 09:12] LABS: CREATININE 3.3 mg/dL (0.55-1.3)
[2024-07-23 09:14] LABS: TOT PROT 5.9 g/dl (6.4-8.2)
[2024-07-23] MEDS: METOCLOPRAMIDE HCL 10 MG TABLET (FP) PO SCH (10:44)
[2024-07-23] MEDS: ACETAMINOPHEN 325 MG TABLET (FP) PO PRN (21:14)
[2024-07-24 08:53] LABS: HEMATOCRIT 34.1 % (34.1-44.9); HEMOGLOBIN 11.3 g/dL (11.2-15.7); MCHC 33.1 g/dl (32.2-35.5); MEAN CELL VOLUME 92.4 fl (79.4-94.8); MEAN PLT VOLUME 10.2 fl (9.4-12.3); PLATELET COUNT 141 x10^3/uL (182-369); RDW 20.5 % (12.4-16.4)
[2024-07-24 09:16] LABS: POTASSIUM 4.3 mmol/L (3.5-5.1)
[2024-07-24 09:23] LABS: ALBUMIN 2.2 g/dl (3.4-5.0); CALCIUM 8.9 mg/dL (8.5-10.1)
[2024-07-24 09:24] LABS: BLOOD UREA NITROGEN 67.5 mg/dL (7-18)
[2024-07-24 09:27] LABS: CREATININE 3.6 mg/dL (0.55-1.3)
[2024-07-24 09:28] LABS: BILIRUBIN,TOTAL 6.1 mg/dL (0.2-1); TOT PROT 5.8 g/dl (6.4-8.2)
[2024-07-24] MEDS ORDERED: SENNOSIDES 8.6MG TABLET (FP) PO PRN (15:24)
[2024-07-24] MEDS: FUROSEMIDE 40 MG/4 ML INJECTABLE VIAL IVPUSH ONE (15:49)
[2024-07-24 22:25] VITALS: BMI 24.8
[2024-07-25 08:06] LABS: ABSOLUTE IMMATURE GRANULOCYTES 0.03 x10^3/uL (0.0-0.031); BASOPHILS # 0.02 x10^3/uL (0.01-0.08); EOSINOPHIL % 0.8 % (0.7-5.8); EOSINOPHILS # 0.04 x10^3/uL (0.04-0.36); HEMATOCRIT 34.8 % (34.1-44.9); HEMOGLOBIN 11.6 g/dL (11.2-15.7); MCHC 33.3 g/dl (32.2-35.5); MEAN CELL VOLUME 90.6 fl (79.4-94.8); MEAN PLT VOLUME 10.2 fl (9.4-12.3); PLATELET COUNT 141 x10^3/uL (182-369); RDW 20.5 % (12.4-16.4)
[2024-07-25 08:24] LABS: INR 0.95 (0.83-1.09); PROTHROMBIN TIME (PATIENT) 10.5 SEC (9.7-13.0)
[2024-07-25 08:25] LABS: POTASSIUM 4.3 mmol/L (3.5-5.1)
[2024-07-25 08:34] LABS: ALBUMIN 2.3 g/dl (3.4-5.0)
[2024-07-25 08:35] LABS: BILIRUBIN,TOTAL 7.2 mg/dL (0.2-1)
[2024-07-25 08:37] LABS: BLOOD UREA NITROGEN 72.1 mg/dL (7-18); CALCIUM 9.3 mg/dL (8.5-10.1); CREATININE 4.1 mg/dL (0.55-1.3)
[2024-07-25 17:05] LABS: HEPATITIS B SURF AG NON-MATERN NON-REACTIVE (NONREACTIVE)
[2024-07-25 17:35] LABS: HCV DIAGNOSTIC IN-HOUSE W/RFLX NON-REACTIVE (NONREACTIVE)
[2024-07-25] MEDS: ALBUMIN HUMAN 25% 100 ML VIAL IV SCH (17:43)
[2024-07-25 19:49] LABS: BODY FLUID MACROPHAGES 20 %; BODY FLUID MESOTHELIAL 44 %; BODYL FLD EOSINOPHIL 1 %
[2024-07-26 08:42] LABS: ABSOLUTE IMMATURE GRANULOCYTES 0.03 x10^3/uL (0.0-0.031); HEMATOCRIT 29.9 % (34.1-44.9); RDW 20.5 % (12.4-16.4)
[2024-07-26 08:44] LABS: BASOPHILS # 0.03 x10^3/uL (0.01-0.08); EOSINOPHIL % 0.8 % (0.7-5.8); EOSINOPHILS # 0.04 x10^3/uL (0.04-0.36); HEMOGLOBIN 9.8 g/dL (11.2-15.7); MCHC 32.8 g/dl (32.2-35.5); MEAN CELL VOLUME 92.3 fl (79.4-94.8); MEAN PLT VOLUME 10.5 fl (9.4-12.3); MONOCYTE # 0.38 x10^3/uL (0.24-0.86); MONOCYTE % 7.4 % (4.7-12.5); PLATELET COUNT 107 x10^3/uL (182-369)
[2024-07-26 09:01] LABS: POTASSIUM 4.6 mmol/L (3.5-5.1)
[2024-07-26 09:18] LABS: BLOOD UREA NITROGEN 76.2 mg/dL (7-18)
[2024-07-26 09:21] LABS: CREATININE 4.5 mg/dL (0.55-1.3)
[2024-07-26 09:22] LABS: TOT PROT 6.1 g/dl (6.4-8.2)
[2024-07-26 09:24] LABS: CALCIUM 8.8 mg/dL (8.5-10.1)
[2024-07-26 10:23] LABS: ALBUMIN 3.3 g/dl (3.4-5.0)
[2024-07-26] MEDS: morphine SULFATE 4 MG/ML VIAL IVPUSH PRN (11:21)
[2024-07-26 16:10] LABS: BODY FLUID ALBUMIN 2.3 g/dL (Not Estab.)
[2024-07-27 07:28] LABS: ABSOLUTE IMMATURE GRANULOCYTES 0.02 x10^3/uL (0.0-0.031); BASOPHILS # 0.02 x10^3/uL (0.01-0.08); EOSINOPHIL % 0.2 % (0.7-5.8); EOSINOPHILS # 0.01 x10^3/uL (0.04-0.36); MEAN CELL VOLUME 92.5 fl (79.4-94.8)
[2024-07-27 07:30] LABS: HEMATOCRIT 34.3 % (34.1-44.9); HEMOGLOBIN 11.2 g/dL (11.2-15.7); MCHC 32.7 g/dl (32.2-35.5); MEAN PLT VOLUME 10.2 fl (9.4-12.3); MONOCYTE # 0.36 x10^3/uL (0.24-0.86); MONOCYTE % 7.7 % (4.7-12.5); PLATELET COUNT 101 x10^3/uL (182-369); RDW 20.3 % (12.4-16.4)
[2024-07-27 07:47] LABS: POTASSIUM 4.6 mmol/L (3.5-5.1)
[2024-07-27 07:54] LABS: BLOOD UREA NITROGEN 81.7 mg/dL (7-18)
[2024-07-27 07:58] LABS: CREATININE 4.6 mg/dL (0.55-1.3)
[2024-07-27 07:59] LABS: BILIRUBIN,TOTAL 9.8 mg/dL (0.2-1); TOT PROT 6.1 g/dl (6.4-8.2)
[2024-07-27 19:48] VITALS: BP 129/75; PULSE 84; RESP 20; TEMP 98.1
[2024-07-31 19:06] LABS: ANTIGLOMERULAR BASEMENT MEN.AB <0.2 units (0.0-0.9); C-ANCA <1:20 titer (Neg:<1:20)
== END 2024-07-27 19:35 | disposition short-term general hospital (02) | DRG 240 ==
LOC: JER 23:44 → JERBED 07-21 04:07 → J6S 07-21 08:51
PROVIDERS: ADMIT Internal Medicine; ATTEND Internal Medicine
PROC: 0W993ZZ Drainage of Right Pleural Cavity, Percutaneous Approach (ICD-10-PCS; principal; 2024-07-25)
DX: C16.9 Malignant neoplasm of stomach, unspecified (principal); I10 Essential (primary) hypertension; E03.9 Hypothyroidism, unspecified; J45.909 Unspecified asthma, uncomplicated; F32.A Depression, unspecified; F41.9 Anxiety disorder, unspecified; J18.9 Pneumonia, unspecified organism; R79.89 Other specified abnormal findings of blood chemistry; N17.9 Acute kidney failure, unspecified; J98.11 Atelectasis; E78.5 Hyperlipidemia, unspecified; E11.40 Type 2 diabetes mellitus with diabetic neuropathy, unspecified; E43 Unspecified severe protein-calorie malnutrition; J90 Pleural effusion, not elsewhere classified; R18.0 Malignant ascites; Z68.24 Body mass index [BMI] 24.0-24.9, adult
CPT/HCPCS: 36415; 71045-TC-FY; 72128-TC; 72131-TC; 74176-TC; 74181-TC; 76700-TC; 76942; 78306-TC; 80053; 81003; 82042; 82150; 82248; 82465; 82550; 82945; 82962; 82977; 83036; 83516; 83520; 83615; 83735; 83880; 83986; 84080; 84155; 84157; 84165; 84439; 84443; 84478; 84484; 85025; 85027; 85610; 85730; 86038; 86256; 86704; 86708; 86803; 86850; 86900; 86901; 87040; 87070; 87075; 87086; 87102; 87116; 87205; 87206; 87210; 87340; 87517; 88108; 88305-TC; 88341-TC; 88342-TC; 93005; 93010; 97116-GP; 97162-GP; 99285-25; A9503